=== PATIENT | female | born 1950 | race Caucasian/White ===

== ENCOUNTER 2016-03-23 11:02 | Emergency (ER) | payer MEDICARE, OTHER ==
[~2016-03-23 11:02] MED LIST: HYDR12.56 PO; PHEN100 PO
[2016-03-23 11:04] VITALS: BP 163/87; PULSE 95; RESP 18; TEMP 97.9; O2SAT 99
--- NOTE | 2016-03-23 13:01 | PD ---
HPI Chief Complaint: Wound/Suture/Staple Re-Check Time Seen by Provider: 12:30 Travel History International Travel<30 days: No Contact w/Intl Traveler<30days: No Traveled to known affect area: No History of Present Illness HPI Patient is a 65-year-old female who presented to the emergency department for evaluation and removal of stitches. Patient states she fell and had to stitches placed on March 08. She denies any other complaints at this time. [facility] Past Medical History Arthritis: Yes (arms and legs are bad) Asthma: No Anxiety: No Depression: No Heart Rhythm Problems: No Cancer: No Cardiovascular Problems: No High Cholesterol: No Chest Pain: No Congestive Heart Failure: No COPD: No Cerebrovascular Accident: No Diabetes: No Diminished Hearing: No Endocrine: No GERD: Yes Genitourinary: No Headaches: Yes Hiatal Hernia: No Immune Disorder: No Musculoskeletal: Yes Neurologic: Yes (RECENT HEAD INJURY) Reproductive: No Respiratory: No Immunizations Current: No Migraines: No Seizures: Yes Thyroid Disease: No Ulcer: No Menopausal: Yes Past Surgical History AICD: No Arteriovenous Shunt: No Insulin Pump: No Joint Replacement: No Pacemaker: No Social History Alcohol Use: Yes (VODKA) Tobacco Use: No Substance Use: No Allergies-Medications (Allergen,Severity, Reaction): Coded Allergies: No Known Allergies (Unverified , 12/04/14) Reported Meds & Prescriptions Reported Meds & Active Scripts Active Dilantin 100 Mg Kapseals (Phenytoin Sodium) 100 Mg Caper 300 Mg PO DAILY Reported Hctz (Hydrochlorothiazide) 12.5 Mg Cap 12.5 Mg PO DAILY Dilantin 100 Mg Kapseals (Phenytoin Sodium) 100 Mg Caper 300 Mg PO DAILY Review of Systems Except as stated in HPI: all other systems reviewed are Neg Physical Exam Narrative GENERAL: Well-nourished, well-developed patient. SKIN: Warm and dry. HEAD: Normocephalic. 2 intact sutures to the anterior scalp, no drainage, redness or exudates noted. EYES: No scleral icterus. No injection or drainage. NECK: Supple, trachea midline. No JVD or lymphadenopathy. CARDIOVASCULAR: Regular rate and rhythm without murmurs, gallops, or rubs. RESPIRATORY: Breath sounds equal bilaterally. No accessory muscle use. GASTROINTESTINAL: Abdomen soft, non-tender, nondistended. MUSCULOSKELETAL: No cyanosis, or edema. BACK: Nontender without obvious deformity. No CVA tenderness. Data Data Last Documented VS Vital Signs Date Time Temp Pulse Resp B/P Pulse Ox O2 Delivery O2 Flow Rate FiO2 03/23/16 11:04 97.9 95 18 163/87 99 Room Air MDM Medical Decision Making Medical Screen Exam Complete: Yes Emergency Medical Condition: Yes Interpretation(s) Vital Signs Date Time Temp Pulse Resp B/P Pulse Ox O2 Delivery O2 Flow Rate FiO2 03/23/16 11:04 97.9 95 18 163/87 99 Room Air Differential Diagnosis Cellulitis versus infected wound versus normal wound healing versus other Narrative Course Patient is a 65-year-old female who presented to emergency department to have her stitches removed. Stitches were placed most 2 weeks ago. She has no new complaints today. There are 2 intact sutures noted to the scalp, these were removed without difficulty. Patient was advised that she can wash her hair as she normally would. She was encouraged to follow-up with her primary doctor or return to emergency department for any new or worsening symptoms. Patient verbalized understanding of these instructions. Patient is stable for discharge. Diagnosis Primary Impression: Encounter for removal of sutures Referrals: Primary Care Physician Patient Instructions: General Instructions Additional Instructions: Follow-up with your primary doctor Return to emergency department for any new or worsening symptoms Med/Other Pt SpecificInfo: No Change to Meds Disposition: 01 DISCHARGE HOME Condition: Stable Celia Saavedra Mar 23, 2016 13:01
== END 2016-03-23 13:24 | disposition home or self-care (01) ==
LOC: NEPB 11:02
DX: S01.01XD Laceration without foreign body of scalp, subsequent encounter (principal); W19.XXXD Unspecified fall, subsequent encounter; Z48.02 Encounter for removal of sutures
CPT/HCPCS: 99281

== ENCOUNTER 2016-05-01 15:27 | Observation (INO) | payer MEDICARE, OTHER ==
[~2016-05-01] VITALS: Ht 160 cm; Wt 50.0 kg
[2016-05-01] MEDS ORDERED: SODIUM CHLOR 0.9% 1000 ML INJ 1,000 ML IV ONE (15:35)
[2016-05-01 15:40] VITALS: BP 155/97; PULSE 118; RESP 16; TEMP 99.7; O2SAT 96
[2016-05-01 15:44] VITALS: BP 155/97; PULSE 114; RESP 14; RESP 16; O2SAT 97
--- NOTE | 2016-05-01 15:44 | PD ---
HPI Chief Complaint: seizure Time Seen by Provider: 15:35 Travel History International Travel<30 days: No Contact w/Intl Traveler<30days: No Traveled to known affect area: No History of Present Illness HPI The patient is a 66-year-old female who presents emergency department from home after a seizure. The patient has a history of traumatic brain injury with subsequent seizures and currently takes Dilantin 100 mg 3 times a day coronary EMS. The patient apparently had 2 seizures earlier today was found on the floor, between furniture earlier today and then had another seizure at home. EMS states when they arrived the patient was postictal, has been slightly more responsive, but has not been talking since EMS arrived. EMS states the patient's blood glucose was approximately 180. The patient's vitals were unremarkable except for mild tachycardiac heart EMS. Upon arrival the patient is postictal and does not follow commands or answer questions. PFSH Past Medical History Arthritis: Yes (arms and legs are bad) Asthma: No Anxiety: No Depression: No Heart Rhythm Problems: No Cancer: No Cardiovascular Problems: No High Cholesterol: No Chest Pain: No Congestive Heart Failure: No COPD: No Cerebrovascular Accident: No Diabetes: No Diminished Hearing: No Endocrine: No GERD: Yes Genitourinary: No Headaches: Yes Hiatal Hernia: No Immune Disorder: No Musculoskeletal: Yes Neurologic: Yes (RECENT HEAD INJURY) Reproductive: No Respiratory: No Immunizations Current: No Migraines: No Seizures: Yes Thyroid Disease: No Ulcer: No Menopausal: Yes Past Surgical History AICD: No Arteriovenous Shunt: No Insulin Pump: No Joint Replacement: No Pacemaker: No Social History Alcohol Use: Yes (VODKA) Tobacco Use: No Substance Use: No Allergies-Medications (Allergen,Severity, Reaction): Coded Allergies: No Known Allergies (Unverified , 05/01/16) Reported Meds & Prescriptions Reported Meds & Active Scripts Active Reported Aspirin 81 Mg Chew 81 Mg CHEW DAILY Dilantin (Phenytoin Extended) 100 Mg Cap 100 Mg PO TID Review of Systems ROS Limitations: Clinical Condition, Other: (postictal) Physical Exam Exam Limitations: Clinical Condition Narrative GENERAL: Awake, apparently postictal 66-year-old female who will open her eyes, but is nonverbal. SKIN: Superficial abrasion to the right forearm. Laceration noted behind the left ear that measures 3 cm within the crease between the ear and head. HEAD: 3 cm laceration between the ear and head. EYES: Pupils equal and round. 3 mm bilateral and reactive. EOMs are intact. ENT: No nasal bleeding or discharge. Mucous membranes pink and moist. No visible tongue lacerations. NECK: Trachea midline. No JVD. CARDIOVASCULAR: Regular, tachycardic with a heart rate of 115. RESPIRATORY: No accessory muscle use. Clear to auscultation. Breath sounds equal bilaterally. GASTROINTESTINAL: Abdomen soft, non-tender, nondistended. No rebound tenderness. MUSCULOSKELETAL: Superficial abrasion to the right forearm. No obvious deformities to the upper or lower extremities. Passive full range of motion of the upper and lower extremity's. NEUROLOGICAL: Awake, eyes open, no obvious focal deficits. Patient moves all 4 extremities, but is slow to respond and is nonverbal initially. Appears postictal. Back: No obvious deformity of thoracic or lumbar vertebrae upon inspection and palpation. PSYCHIATRIC: Unable to assess. Data Data Last Documented VS Vital Signs Date Time Temp Pulse Resp B/P Pulse Ox O2 Delivery O2 Flow Rate FiO2 05/01/16 15:44 115 16 96 Room Air 05/01/16 15:44 155/97 05/01/16 15:40 99.7 Orders Complete Blood Count With Diff (05/01/16 15:35) Alcohol (Ethanol) (05/01/16 15:35) Phenytoin (Dilantin) (05/01/16 15:35) Electrocardiogram (05/01/16 ) Ct Brain W/O Iv Contrast(Rout) (05/01/16 ) Blood Glucose (05/01/16 15:35) Ecg Monitoring (05/01/16 15:35) Iv Access Insert/Monitor (05/01/16 15:35) Oximetry (05/01/16 15:35) Comprehensive Metabolic Panel (05/01/16 15:35) Sodium Chlor 0.9% 1000 Ml Inj (Ns 1000 M (05/01/16 15:35) Sodium Chloride 0.9% Flush (Ns Flush) (05/01/16 15:45) Lactic Acid (05/01/16 15:35) Ct Cerv Spine W/O Contrast (05/01/16 ) Ondansetron Inj (Zofran Inj) (05/01/16 16:45) Phenytoin Inj (Dilantin Inj) (05/01/16 16:45) Admit Order (Ed Use Only) (05/01/16 17:32) Labs Laboratory Tests Test 05/01/16 15:55 White Blood Count 11.0 TH/MM3 Red Blood Count 3.75 MIL/MM3 Hemoglobin 12.8 GM/DL Hematocrit 36.4 % Mean Corpuscular Volume 97.1 FL Mean Corpuscular Hemoglobin 34.0 PG Mean Corpuscular Hemoglobin 35.1 % Concent Red Cell Distribution Width 14.5 % Platelet Count 209 TH/MM3 Mean Platelet Volume 8.6 FL Neutrophils (%) (Auto) 87.8 % Lymphocytes (%) (Auto) 7.1 % Monocytes (%) (Auto) 4.8 % Eosinophils (%) (Auto) 0.1 % Basophils (%) (Auto) 0.2 % Neutrophils # (Auto) 9.6 TH/MM3 Lymphocytes # (Auto) 0.8 TH/MM3 Monocytes # (Auto) 0.5 TH/MM3 Eosinophils # (Auto) 0.0 TH/MM3 Basophils # (Auto) 0.0 TH/MM3 CBC Comment DIFF FINAL Differential Comment Sodium Level 139 MEQ/L Potassium Level 4.3 MEQ/L Chloride Level 102 MEQ/L Carbon Dioxide Level 26.3 MEQ/L Anion Gap 11 MEQ/L Blood Urea Nitrogen 10 MG/DL Creatinine 0.89 MG/DL Estimat Glomerular Filtration 64 ML/MIN Rate Random Glucose 177 MG/DL Lactic Acid Level 3.3 mmol/L Calcium Level 8.5 MG/DL Total Bilirubin 0.5 MG/DL Aspartate Amino Transf 35 U/L (AST/SGOT) Alanine Aminotransferase 19 U/L (ALT/SGPT) Alkaline Phosphatase 153 U/L Total Protein 6.4 GM/DL Albumin 3.2 GM/DL Phenytoin (Dilantin) Level 9.4 MCG/ML Ethyl Alcohol Level LESS THAN 3 MG/DL MDM Medical Decision Making Medical Screen Exam Complete: Yes Emergency Medical Condition: Yes Medical Record Reviewed: Yes Interpretation(s) Laboratory Tests Test 05/01/16 15:55 White Blood Count 11.0 TH/MM3 Red Blood Count 3.75 MIL/MM3 Hemoglobin 12.8 GM/DL Hematocrit 36.4 % Mean Corpuscular Volume 97.1 FL Mean Corpuscular Hemoglobin 34.0 PG Mean Corpuscular Hemoglobin 35.1 % Concent Red Cell Distribution Width 14.5 % Platelet Count 209 TH/MM3 Mean Platelet Volume 8.6 FL Neutrophils (%) (Auto) 87.8 % Lymphocytes (%) (Auto) 7.1 % Monocytes (%) (Auto) 4.8 % Eosinophils (%) (Auto) 0.1 % Basophils (%) (Auto) 0.2 % Neutrophils # (Auto) 9.6 TH/MM3 Lymphocytes # (Auto) 0.8 TH/MM3 Monocytes # (Auto) 0.5 TH/MM3 Eosinophils # (Auto) 0.0 TH/MM3 Basophils # (Auto) 0.0 TH/MM3 CBC Comment DIFF FINAL Differential Comment Sodium Level 139 MEQ/L Potassium Level 4.3 MEQ/L Chloride Level 102 MEQ/L Carbon Dioxide Level 26.3 MEQ/L Anion Gap 11 MEQ/L Blood Urea Nitrogen 10 MG/DL Creatinine 0.89 MG/DL Estimat Glomerular Filtration 64 ML/MIN Rate Random Glucose 177 MG/DL Lactic Acid Level 3.3 mmol/L Calcium Level 8.5 MG/DL Total Bilirubin 0.5 MG/DL Aspartate Amino Transf 35 U/L (AST/SGOT) Alanine Aminotransferase 19 U/L (ALT/SGPT) Alkaline Phosphatase 153 U/L Total Protein 6.4 GM/DL Albumin 3.2 GM/DL Phenytoin (Dilantin) Level 9.4 MCG/ML Ethyl Alcohol Level LESS THAN 3 MG/DL CT the head reveals stable remote infarcts on the left. No acute findings compared with February 2016. 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 No acute findings compared with February 2016. Filipe Garcia MD Cervical Spine CT 05/01/16 0000 Signed Impressions: Service Date/Time: Sunday, May 01, 2016 16:51 - CONCLUSION: 1. Moderate degenerative change, stable since February 2016. No acute fracture. Goiter. Filipe Garcia MD Differential Diagnosis Differential diagnosis includes seizure, breakthrough seizure, subtherapeutic Dilantin level, supratherapeutic Dilantin level, hyponatremia, intracranial hemorrhage, laceration, cervical injury. Narrative Course IV was established, labs are drawn and sent, and the patient was placed on cardiac telemetry monitoring and continuous pulse oximetry monitoring. CT of the brain and cervical spine were ordered. Patient was administered 1 L of IV fluids. The patient was found to have what appeared to be bedbugs, therefore, the patient had her clothing removed, new bed sheets applied, and a hairnet placed. CT was notified that the patient appears to have bedbugs, they will try to make exceptions and follow-up protocol in order to have the CT performed. The patient did have 1 episode of vomiting, therefore, was administered Zofran 4 mg intravenously. The patient was administered Dilantin 500 mg intravenously. The patient has had 2 seizures today, has not appeared to return to baseline, still is postictal, was able to tell me her name, but not where she was, current year, current month, or who she lives with. Patient appears to have status epilepticus that she has not returned to baseline. Therefore, the patient will be admitted. The patient's laceration was repaired by the physician exceptional children teacher assistant, Tino Hurst, please refer to the procedure note. The patient's primary physician is Dr. Dick Sylvester, therefore, [facility] were paged for admission. The patient was reevaluated after CT of 5:20 PM. The patient was ambulatory, was able to tell me she was a hospital and her name, but cannot tell me the name of her or the current year. The patient states it was 1971. The patient is still somewhat confused, does appear to be slightly improving. However, patient is not returned to baseline and it has been longer than one hour. The was contacted, he told nursing staff that the patient is normally alert and oriented 3 and normally knows the year, patient has not returned to baseline. Therefore, patient will be admitted. Physician Communication Physician Communication I discussed the patient with Dr. Walls who agrees with 23 hour observation. Diagnosis Primary Impression: Status epilepticus Additional Impressions: Seizure disorder Laceration of head Qualified Code: S01.91XA - Laceration of head without foreign body, unspecified part of head, initial encounter Admitting Information Admitting Physician Requests: Observation Condition: Stable Nav Marinelli MD May 01, 2016 15:44
[2016-05-01] MEDS ORDERED: SODIUM CHLORIDE 0.9% FLUSH 5 ML FLUSH IVF PRN (15:45)
[2016-05-01 16:19] LABS: AUTOMATED NEUTROPHIL # 9.6 TH/MM3 (1.8-7.7); BASOPHIL % 0.2 % (0.0-2.0); EOSINOPHIL % 0.1 % (0.0-4.0); HEMATOCRIT 36.4 % (35.0-46.0); HEMO FLAGS DIFF FINAL; LYMPH % 7.1 % (9.0-44.0); LYMPHOCYTE # 0.8 TH/MM3 (1.0-4.8); MEAN CELL VOLUME 97.1 FL (80.0-100.0); MEAN CORPUSCULAR HGB CONC 35.1 % (32.0-36.0); MONO % 4.8 % (0.0-8.0); NEUT % 87.8 % (16.0-70.0); PLATELET COUNT 209 TH/MM3 (150-450); RED BLOOD COUNT 3.75 MIL/MM3 (4.00-5.30); RED CELL DISTRIBUTION WIDTH 14.5 % (11.6-17.2)
[2016-05-01 16:35] LABS: ALKALINE PHOSPHATASE 153 U/L (45-117); ALT (GPT) 19 U/L (10-53); ANION GAP 11 MEQ/L (5-15); AST (GOT) 35 U/L (15-37); BICARBONATE 26.3 MEQ/L (21.0-32.0); BLOOD UREA NITROGEN 10 MG/DL (7-18); CHLORIDE 102 MEQ/L (98-107); GLOMERULAR FILTRATION RATE 64 ML/MIN (>89); SODIUM (NA) 139 MEQ/L (136-145); TOTAL BILIRUBIN ADULT 0.5 MG/DL (0.2-1.0)
[2016-05-01 16:36] LABS: POTASSIUM 4.3 MEQ/L (3.5-5.1)
[2016-05-01] MEDS ORDERED: ONDANSETRON HCL 4 MG/2 ML VIAL IV PUSH ONE (16:45)
[2016-05-01] MEDS ORDERED: PHENYTOIN INJ 500 MG in SODIUM CHLORIDE 0.9% INJ 100 ML IV ONE (16:45)
--- NOTE | 2016-05-01 17:25 | RADRPT ---
EXAM DATE/TIME: 05/01/2016 16:51 [facility] COMPARISON: CT BRAIN W/O CONTRAST, March 08, 2016, 17:42. INDICATIONS : Trauma; seizure. RADIATION DOSE: 51.46 CTDIvol (mGy) MEDICAL HISTORY : Seizures. intracranial bleed. SURGICAL HISTORY : None. ENCOUNTER: Initial ACUITY: 1 day PAIN SCALE: Non-responsive LOCATION: cranial TECHNIQUE: Multiple contiguous axial images were obtained of the head. Using automated exposure control and adj ustment of the mA and/or kV according to patient size, radiation dose was kept as low as reasonably a chievable to obtain optimal diagnostic quality images. FINDINGS: Remote infarcts noted left frontal lobe and left parietal lobe similar to February 2016. White matter ischemic changes noted. Hemorrhage, mass effect or shift. No hydrocephalus. No acute bony abnormalit ies. 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 No acute findings compared with February 2016. Filipe Garcia MD on May 01, 2016 at 17:22 Board Certified Radiologist. This report was verified electronically.
[2016-05-01] MEDS ORDERED: DILA100C PO (17:37)
[2016-05-01] MEDS ORDERED: ASPI81CH CHEW (17:37)
--- NOTE | 2016-05-01 17:38 | RADRPT ---
EXAM DATE/TIME: 05/01/2016 16:51 [facility] COMPARISON: CT CERVICAL SPINE W/O CONTRAST, March 08, 2016, 17:43. INDICATIONS : Trauma; seizure. RADIATION DOSE: 42.27 CTDIvol (mGy) MEDICAL HISTORY : Seizures. intracrainial bleed. SURGICAL HISTORY : None. ENCOUNTER: Initial ACUITY: 1 day PAIN SCALE: Non-responsive LOCATION: Bilateral neck TECHNIQUE: Volumetric scanning of the cervical spine was performed. Multiplanar reconstructions in the sagittal, coronal and oblique axial planes were performed. Using automated exposure control and adjustment o f the mA and/or kV according to patient size, radiation dose was kept as low as reasonably achievable to obtain optimal diagnostic quality images. FINDINGS: Comparison is February 2016. Examination is stable. There is reversal of normal cervical lordosis. No acute fracture or significant subluxation. Mild AP canal stenosis at C5-6-7. Again seen is stable left apical scarring and goiter. CONCLUSION: 1. Moderate degenerative change, stable since February 2016. No acute fracture. Goiter. Filipe Garcia MD on May 01, 2016 at 17:32 Board Certified Radiologist. This report was verified electronically.
--- NOTE | 2016-05-01 17:45 | PD ---
Physical Exam Date Seen by Provider: May 01, 2016 Time Seen by Provider: 17:43 Narrative 66-year-old female that presents to the ED for evaluation of laceration to the left ear. I was asked by my attending to repair laceration. Please refer to his note. Data Data Last Documented VS Vital Signs Date Time Temp Pulse Resp B/P Pulse Ox O2 Delivery O2 Flow Rate FiO2 05/01/16 15:44 115 16 96 Room Air 05/01/16 15:44 155/97 05/01/16 15:40 99.7 Orders Complete Blood Count With Diff (05/01/16 15:35) Alcohol (Ethanol) (05/01/16 15:35) Phenytoin (Dilantin) (05/01/16 15:35) Electrocardiogram (05/01/16 ) Ct Brain W/O Iv Contrast(Rout) (05/01/16 ) Blood Glucose (05/01/16 15:35) Ecg Monitoring (05/01/16 15:35) Iv Access Insert/Monitor (05/01/16 15:35) Oximetry (05/01/16 15:35) Comprehensive Metabolic Panel (05/01/16 15:35) Sodium Chlor 0.9% 1000 Ml Inj (Ns 1000 M (05/01/16 15:35) Sodium Chloride 0.9% Flush (Ns Flush) (05/01/16 15:45) Lactic Acid (05/01/16 15:35) Ct Cerv Spine W/O Contrast (05/01/16 ) Ondansetron Inj (Zofran Inj) (05/01/16 16:45) Phenytoin Inj (Dilantin Inj) (05/01/16 16:45) Admit Order (Ed Use Only) (05/01/16 17:32) Labs Laboratory Tests Test 05/01/16 15:55 White Blood Count 11.0 TH/MM3 Red Blood Count 3.75 MIL/MM3 Hemoglobin 12.8 GM/DL Hematocrit 36.4 % Mean Corpuscular Volume 97.1 FL Mean Corpuscular Hemoglobin 34.0 PG Mean Corpuscular Hemoglobin 35.1 % Concent Red Cell Distribution Width 14.5 % Platelet Count 209 TH/MM3 Mean Platelet Volume 8.6 FL Neutrophils (%) (Auto) 87.8 % Lymphocytes (%) (Auto) 7.1 % Monocytes (%) (Auto) 4.8 % Eosinophils (%) (Auto) 0.1 % Basophils (%) (Auto) 0.2 % Neutrophils # (Auto) 9.6 TH/MM3 Lymphocytes # (Auto) 0.8 TH/MM3 Monocytes # (Auto) 0.5 TH/MM3 Eosinophils # (Auto) 0.0 TH/MM3 Basophils # (Auto) 0.0 TH/MM3 CBC Comment DIFF FINAL Differential Comment Sodium Level 139 MEQ/L Potassium Level 4.3 MEQ/L Chloride Level 102 MEQ/L Carbon Dioxide Level 26.3 MEQ/L Anion Gap 11 MEQ/L Blood Urea Nitrogen 10 MG/DL Creatinine 0.89 MG/DL Estimat Glomerular Filtration 64 ML/MIN Rate Random Glucose 177 MG/DL Lactic Acid Level 3.3 mmol/L Calcium Level 8.5 MG/DL Total Bilirubin 0.5 MG/DL Aspartate Amino Transf 35 U/L (AST/SGOT) Alanine Aminotransferase 19 U/L (ALT/SGPT) Alkaline Phosphatase 153 U/L Total Protein 6.4 GM/DL Albumin 3.2 GM/DL Phenytoin (Dilantin) Level 9.4 MCG/ML Ethyl Alcohol Level LESS THAN 3 MG/DL [facility] Medical Record Reviewed: Yes Supervised Visit with MATTEO: No Procedures Procedure Narrative LACERATION LOCATION: left ear LENGTH: 2 cm NUMBER OF STITCHES/GUSTABO: dermabond REPAIR: The area of the laceration was prepped with Betadine and sterilely draped. The wound was copiously irrigated and explored without evidence of foreign body, tendon injury or neurovascular injury. The wound was closed using dermabond. This was a 1 layer repair. A sterile dressing was applied. The patient was advised to keep the dressing clean and dry. Patient tolerated the procedure well. Some hairs did unfortunately glue to the dermabond but overall wound closed well. Dressing applied by nurse. Condition: Stable Tino Hurst May 01, 2016 17:45
[2016-05-01 17:47] VITALS: BP 140/94; PULSE 108; RESP 16; O2SAT 97
[2016-05-01] MEDS ORDERED: SODIUM CHLORIDE 0.9% FLUSH 5 ML FLUSH FLUSH PRN (18:00)
[2016-05-01] MEDS ORDERED: ACETAMINOPHEN 325 MG TAB PO PRN (18:00)
[2016-05-01] MEDS ORDERED: NALOXONE HCL 0.4 MG/ML AMP IV PRN (18:00)
[2016-05-01] MEDS ORDERED: ONDANSETRON HCL 4 MG/2 ML VIAL IVP PRN (18:00)
--- NOTE | 2016-05-01 18:04 | HHI.HP ---
[facility] Yadiel Sylvester MD Admission Diagnosis status epilepticus, lactic acidosis, subtherapeutic Dilantin level Diagnoses: Chief Complaint: seizures (Nikkie Bailey) Travel History International Travel<30 Days: No Contact w/Intl Traveler <30 Da: No Traveled to Known Affected Are: No (Nikkie Bailey) History of Present Illness The patient is a 66-year-old female with significant past medical history of seizure disorder secondary to traumatic brain injury, previous falls secondary to seizures that resulted in hemorrhagic bleeds. Patient was brought into the emergency room after she had seizures at home. Per review of emergency room records, patient had 2 seizures earlier in the day and was found on the floor between furniture. When EMS arrived, the patient was postictal. Blood glucose was 180, she was noted tachycardic. Patient found her foaming at the mouth and attempted to give CPR. Information is obtained from the emergency room record, patient remains lethargic but is now waking up but unable to provide any details. There is no family at bedside. In the emergency room, patient was evaluated. CT of the brain and cervical spine were ordered, no acute findings. 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 No acute findings compared with February 2016. Filipe Garcia MD Cervical Spine CT 05/01/16 Signed Impressions: Service Date/Time: Sunday, May 01, 2016 16:51 - CONCLUSION: 1. Moderate degenerative change, stable since February 2016. No acute fracture. Goiter. Filipe Garcia MD Patient takes Dilantin 100 mg 3 times a day. Dilantin level was 9.4. It isn't clear whether patient is compliant with medications. Laboratory workup was completed, lactic acid was 3.3. Blood glucose was 177. General low-grade fever , 99.7. Blood pressure was 155 or 97, heart rate 118, respiratory rate 16, sats 96% on room air. He did have one episode of vomiting in the emergency room , was given antiemetics. She was given Dilantin 500 mg IV. It was noted she had a laceration to the left ear which was repaired by the PA. Patient also has bruising and abrasions to both arms. Additionally she was noted with small insects crawling on her hair, 2 different types. Possibly these are bedbugs. Patient is evaluated in emergency room, patient awakes to voice, now she is in the hospital, able to provide name. Unable to provide any details, when asked about compliance with medications she is not answering. She admits to some alcohol use, unable to quantify how much. Denies any illegal drug use. Per 's report to nursing staff, patient is usually alert and oriented 3. Patient is admitted for further evaluation and treatment. (Nikkie Bailey) Review of Systems ROS Limitations: Clinical Condition, Altered Mental Status, Poor Historian ( Nikkie Bailey) Past Family Social History Past Medical History 1. Intraparenchymal hemorrhage in 2012 and 2013 after falling sec. to seizures 2. History of seizures. 3. Hypertension. Past Surgical History Right eye surgery, implanted lens, cataract Reported Medications Reported Meds & Active Scripts Active Reported Aspirin 81 Mg Chew 81 Mg CHEW DAILY Dilantin (Phenytoin Extended) 100 Mg Cap 100 Mg PO TID (Nikkie Bailey) Allergies: Coded Allergies: No Known Allergies (Unverified , 05/01/16) Active Ordered Medications Inpatient Medications Acetaminophen (Tylenol) 650 mg Q4H PRN PO TEMP > 100.4; Start 05/01/16 at 18:00 ; Status UNV IV Flush (NS Flush) 2 ml BID FLUSH ; Start 05/01/16 at 21:00; Status UNV Naloxone HCl (Narcan Inj) 0.4 mg UNSCH PRN IV SEE LABEL COMMENTS; Start at 18:00; Status UNV Ondansetron HCl (Zofran Inj) 4 mg Q6H PRN IVP NAUSEA OR VOMITING; Start at 18:00; Status UNV Ondansetron HCl 4 mg 4 mg ONCE ONCE IV PUSH Last administered on 05/01/16 17: 29; Start 05/01/16 at 16:45; Stop 05/01/16 at 16:46; Status DC Phenytoin Sodium 500 mg/Sodium Chloride 110 ml @ 240 mls/hr ONCE ONCE IV Last administered on 05/01/16 17:48; Start 05/01/16 at 16:45; Stop 05/01/16 at 17:12; Status DC Sodium Chloride (NS 1000 ml Inj) 1,000 ml @ 100 mls/hr Q10H IV ; Start at 18:00; Status UNV Family History Unable to obtain Social History Patient is , lives with . She does smoke, unclear how much. Does drink alcohol, unclear on the amount. Denies illegal drug use. (Nikkie Bailey) Physical Exam Vital Signs Vital Signs Date Time Temp Pulse Resp B/P Pulse Ox O2 Delivery O2 Flow Rate FiO2 05/01/16 17:47 108 16 140/94 97 Room Air 05/01/16 15:44 115 16 96 Room Air 05/01/16 15:44 16 97 Room Air 05/01/16 15:44 114 14 155/97 97 Room Air 05/01/16 15:40 99.7 118 16 155/97 96 Physical Exam GENERAL: This is a well-nourished, female. Disheveled. Postictal SKIN: Abrasions and bruises to upper extremities. Laceration to the left ear that has been sutured. There is dried blood. No insects noted crawling at this time. HEAD: Atraumatic. Normocephalic. No temporal or scalp tenderness. EYES: Right pupil irregular, secondary to surgery. Left pupil equal and reactive. No scleral icterus. No injection or drainage. ENT: Nose without bleeding, purulent drainage or septal hematoma. Throat without erythema, tonsillar hypertrophy or exudate. Uvula midline. Airway patent. NECK: Trachea midline. No JVD or lymphadenopathy. Supple, nontender, no meningeal signs. CARDIOVASCULAR: Regular rate and rhythm without murmurs, gallops, or rubs. RESPIRATORY: Clear to auscultation. Breath sounds equal bilaterally. No wheezes , rales, or rhonchi. GASTROINTESTINAL: Abdomen soft, non-tender, nondistended. No hepato-splenomegaly , or palpable masses. No guarding. MUSCULOSKELETAL: Extremities without clubbing, cyanosis, or edema. No joint tenderness, effusion, or edema noted. No calf tenderness. Negative Homans sign bilaterally. NEUROLOGICAL: Postictal, awakes to voice, oriented to self and place. Not following commands consistently. No focal deficits. No seizures noted. Laboratory Laboratory Tests Test 05/01/16 15:55 White Blood Count 11.0 Red Blood Count 3.75 Hemoglobin 12.8 Hematocrit 36.4 Mean Corpuscular Volume 97.1 Mean Corpuscular Hemoglobin 34.0 Mean Corpuscular Hemoglobin 35.1 Concent Red Cell Distribution Width 14.5 Platelet Count 209 Mean Platelet Volume 8.6 Neutrophils (%) (Auto) 87.8 Lymphocytes (%) (Auto) 7.1 Monocytes (%) (Auto) 4.8 Eosinophils (%) (Auto) 0.1 Basophils (%) (Auto) 0.2 Neutrophils # (Auto) 9.6 Lymphocytes # (Auto) 0.8 Monocytes # (Auto) 0.5 Eosinophils # (Auto) 0.0 Basophils # (Auto) 0.0 CBC Comment DIFF FINAL Differential Comment Sodium Level 139 Potassium Level 4.3 Chloride Level 102 Carbon Dioxide Level 26.3 Anion Gap 11 Blood Urea Nitrogen 10 Creatinine 0.89 Estimat Glomerular Filtration 64 Rate Random Glucose 177 Lactic Acid Level 3.3 Calcium Level 8.5 Total Bilirubin 0.5 Aspartate Amino Transf 35 (AST/SGOT) Alanine Aminotransferase 19 (ALT/SGPT) Alkaline Phosphatase 153 Total Protein 6.4 Albumin 3.2 Phenytoin (Dilantin) Level 9.4 Ethyl Alcohol Level LESS THAN 3 (Nikkie Bailey) Result Diagram: 05/01/16 1555 05/01/16 1555 Imaging Last Impressions Head CT 05/01/16 0000 Signed Impressions: Service Date/Time: Sunday, May 01, 2016 16:51 - CONCLUSION: 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 No acute findings compared with February 2016. Filipe Garcia MD Cervical Spine CT 05/01/16 0000 Signed Impressions: Service Date/Time: Sunday, May 01, 2016 16:51 - CONCLUSION: 1. Moderate degenerative change, stable since February 2016. No acute fracture. Goiter. Filipe Garcia MD (Nikkie Bailey) Assessment and Plan Problem List: (1) Status epilepticus (2) Seizure disorder (3) Laceration of head (4) Tobacco abuse (5) Subtherapeutic serum dilantin level (6) Cognitive impairment Assessment and Plan Admit to Dr. Walls 66-year-old female with history of traumatic brain injury and subsequent seizure disorder, presented to emergency room with status epilepticus. Noted with subtherapeutic Dilantin level. Status epilepticus, remains postictal -Continue with IV fluids Resume diet when patient is awake and able to pass bedside swallow eval Neurology consultation EEG Resume Dilantin 100 mg by mouth 3 times a day Repeat Dilantin level in the morning Bed rest for now Continuous cardiac telemetry Seizure precautions Neurology checks per protocol Left ear laceration Monitor, local wound care SCDs for DVT prophylaxis Home medications reviewed, initiated as indicated Plan of care has been discussed with the patient, attending and registered nurse. Further management of the patient will be dependent on the hospital course This patient was seen by myself and Dr. Walls, this H&P is written on his behalf (Nikkie Bailey) Assessment and Plan Pt seen and examined on day of admission with rn at bedside chart was reviewed meds and labs reviewed rad data reviewed notes reviewed plan of care dw eduardo dw rn (Ibeth Walls MD) Problem Qualifiers (1) Laceration of head: Qualified Code: S01.91XA - Laceration of head without foreign body, unspecified part of head, initial encounter Nikkie Bailey May 01, 2016 18:04 Ibeth Walls MD May 02, 2016 21:13
[2016-05-01] MEDS: SODIUM CHLOR 0.9% 1000 ML INJ 1,000 ML IV SCH (19:31)
[2016-05-01 20:29] VITALS: BP 127/68; PULSE 98; RESP 14; O2SAT 97
[2016-05-01] MEDS: SODIUM CHLORIDE 0.9% FLUSH 5 ML FLUSH FLUSH SCH (20:34)
[2016-05-01 21:00] VITALS: BP 121/76; PULSE 74; RESP 18; TEMP 97.4; O2SAT 98
[2016-05-01 23:42] VITALS: BP 124/74; PULSE 74; RESP 21; TEMP 98.4; O2SAT 98
[2016-05-02] VITALS: PULSE 99
[2016-05-02] MEDS ORDERED: PERMETHRIN 5% CREAM 60 GM TOPICAL ONE (00:15)
[2016-05-02 04:36] VITALS: BP 124/78; PULSE 87; RESP 18; TEMP 97.9; O2SAT 97
[2016-05-02] MEDS: SODIUM CHLOR 0.9% 1000 ML INJ 1,000 ML IV SCH ×2 (05:37→14:00)
[2016-05-02 06:09] LABS: AUTOMATED NEUTROPHIL # 3.3 TH/MM3 (1.8-7.7); BASOPHIL % 0.4 % (0.0-2.0); EOSINOPHIL % 0.8 % (0.0-4.0); HEMATOCRIT 32.8 % (35.0-46.0); HEMO FLAGS DIFF FINAL; LYMPH % 23.5 % (9.0-44.0); LYMPHOCYTE # 1.1 TH/MM3 (1.0-4.8); MEAN CELL VOLUME 96.6 FL (80.0-100.0); MEAN CORPUSCULAR HEMOGLOBIN 34.6 PG (27.0-34.0); MEAN CORPUSCULAR HGB CONC 35.8 % (32.0-36.0); MONO % 8.3 % (0.0-8.0); PLATELET COUNT 168 TH/MM3 (150-450); RED BLOOD COUNT 3.39 MIL/MM3 (4.00-5.30); RED CELL DISTRIBUTION WIDTH 14.6 % (11.6-17.2); WHITE BLOOD COUNT 4.9 TH/MM3 (4.0-11.0)
[2016-05-02 06:39] LABS: BICARBONATE 30.8 MEQ/L (21.0-32.0)
[2016-05-02 07:00] VITALS: PULSE 79
[2016-05-02 07:01] LABS: POTASSIUM 2.9 MEQ/L (3.5-5.1)
--- NOTE | 2016-05-02 08:01 | HHI.PR ---
Subjective Remarks Patient more awake today, now she is in the hospital, able to provide name, oriented to self and others. Indicates that she probably didn't take her Dilantin yesterday, possibly day before Complaining of generalized body aches Patient states she has bedbugs at home, lives in a rental facility in landlord will not pay for treatment. No chest pain No shortness of breath Has no other complaints Indicates that she used to drink heavily but not as much, now more a social drinker (Nikkie Bailey) Objective Objective Results - Vital Signs Date Time Temp Pulse Resp B/P Pulse Ox O2 Delivery O2 Flow Rate FiO2 05/02/16 04:36 97.9 87 18 124/78 97 05/02/16 00:00 99 05/01/16 23:42 98.4 74 21 124/74 98 05/01/16 21:00 97.4 74 18 121/76 98 05/01/16 20:29 98 14 127/68 97 Room Air 05/01/16 17:47 108 16 140/94 97 Room Air 05/01/16 15:44 115 16 96 Room Air 05/01/16 15:44 16 97 Room Air 05/01/16 15:44 114 14 155/97 97 Room Air 05/01/16 15:40 99.7 118 16 155/97 96 I/O 05/01/16 05/01/16 05/01/16 05/02/16 05/02/16 05/02/16 07:00 15:00 23:00 07:00 15:00 23:00 Intake Total 800 ml Balance 800 ml IV Total 800 ml # Voids 2 (Nikkie Bailey) Result Diagram: 05/02/16 0520 05/02/16 0520 Imaging Last Impressions Head CT 05/01/16 0000 Signed Impressions: Service Date/Time: Sunday, May 01, 2016 16:51 - CONCLUSION: 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 No acute findings compared with February 2016. Filipe Garcia MD Cervical Spine CT 05/01/16 0000 Signed Impressions: Service Date/Time: Sunday, May 01, 2016 16:51 - CONCLUSION: 1. Moderate degenerative change, stable since February 2016. No acute fracture. Goiter. Filipe Garcia MD Other Results Laboratory Tests Test 05/01/16 05/02/16 15:55 05:20 White Blood Count 11.0 4.9 Red Blood Count 3.75 3.39 Hemoglobin 12.8 11.7 Hematocrit 36.4 32.8 Mean Corpuscular Volume 97.1 96.6 Mean Corpuscular Hemoglobin 34.0 34.6 Mean Corpuscular Hemoglobin 35.1 35.8 Concent Red Cell Distribution Width 14.5 14.6 Platelet Count 209 168 Mean Platelet Volume 8.6 8.6 Neutrophils (%) (Auto) 87.8 67.0 Lymphocytes (%) (Auto) 7.1 23.5 Monocytes (%) (Auto) 4.8 8.3 Eosinophils (%) (Auto) 0.1 0.8 Basophils (%) (Auto) 0.2 0.4 Neutrophils # (Auto) 9.6 3.3 Lymphocytes # (Auto) 0.8 1.1 Monocytes # (Auto) 0.5 0.4 Eosinophils # (Auto) 0.0 0.0 Basophils # (Auto) 0.0 0.0 CBC Comment DIFF FINAL DIFF FINAL Differential Comment Sodium Level 139 143 Potassium Level 4.3 2.9 Chloride Level 102 104 Carbon Dioxide Level 26.3 30.8 Anion Gap 11 8 Blood Urea Nitrogen 10 5 Creatinine 0.89 0.68 Estimat Glomerular Filtration 64 87 Rate Random Glucose 177 80 Lactic Acid Level 3.3 Calcium Level 8.5 7.7 Total Bilirubin 0.5 Aspartate Amino Transf 35 (AST/SGOT) Alanine Aminotransferase 19 (ALT/SGPT) Alkaline Phosphatase 153 Total Protein 6.4 Albumin 3.2 Phenytoin (Dilantin) Level 9.4 15.2 Ethyl Alcohol Level LESS THAN 3 (Nikkie Bailey) ROS General: Other (poor historian, c/o general body aches from fall yesterday ) ( Nikkie Bailey) Physical Exam Physical Exam GENERAL: This is a well-nourished, female. Disheveled. Postictal SKIN: Abrasions and bruises to upper extremities. Laceration to the left ear that has been sutured. There is dried blood. No insects noted crawling at this time. HEAD: Atraumatic. Normocephalic. No temporal or scalp tenderness. EYES: Right pupil irregular, secondary to surgery. Left pupil equal and reactive. No scleral icterus. No injection or drainage. ENT: Nose without bleeding, purulent drainage or septal hematoma. Throat without erythema, tonsillar hypertrophy or exudate. Uvula midline. Airway patent. NECK: Trachea midline. No JVD or lymphadenopathy. Supple, nontender, no meningeal signs. CARDIOVASCULAR: Regular rate and rhythm without murmurs, gallops, or rubs. RESPIRATORY: Clear to auscultation. Breath sounds equal bilaterally. No wheezes , rales, or rhonchi. GASTROINTESTINAL: Abdomen soft, non-tender, nondistended. No hepato-splenomegaly , or palpable masses. No guarding. MUSCULOSKELETAL: Extremities without clubbing, cyanosis, or edema. No joint tenderness, effusion, or edema noted. No calf tenderness. Negative Homans sign bilaterally. NEUROLOGICAL: Awakes to voice, more alert, oriented 2. Following commands, speech clear. Able to provide some more information today as to what brought her in the hospital. (Nikkie Bailey) Urinary Catheter: No (Nikkie Bailey) Vascular Central Line Catheter: No (Nikkie Bailey) A/P Diagnosis: (1) Status epilepticus (2) Seizure disorder (3) Laceration of head (4) Tobacco abuse (5) Subtherapeutic serum dilantin level Assessment and Plan 66-year-old female with history of traumatic brain injury and subsequent seizure disorder, presented to emergency room with status epilepticus. Noted with subtherapeutic Dilantin level. Status epilepticus, secondary to poor compliance with taking medications. -Continue with IV fluids Neurology consultation pending EEG pending Continue Dilantin 100 mg by mouth 3 times a day Repeat Dilantin level 15.2 Out of bed with assistance Continuous cardiac telemetry Seizure precautions Neurology checks per protocol -Improve, more awake and oriented. 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 There is also issue with poor compliance with medication. Patient has history of previous TBI, likely has some cognitive deficit. We will wait for neurology and EEG. If patient remains stable, possible discharge later today. D/W RN D/W Dr. Walls D/W pt. This patient was seen by myself and Dr. Walls, this note is written on his behalf (Nikkie Bailey) Assessment and Plan evaluation was done as above chart was reviewed labs rad data and meds reviewed dw eduardo about plan of care (Ibeth Walls MD) Problem Qualifiers (1) Laceration of head: Qualified Code: S01.91XA - Laceration of head without foreign body, unspecified part of head, initial encounter Nikkie Bailey May 02, 2016 08:01 Ibeth Walls MD May 02, 2016 08:17
[2016-05-02] MEDS ORDERED: POTASSIUM CL 40 MEQ/30 ML LIQ UDC PO ONE (08:15)
--- NOTE | 2016-05-02 09:56 | HHI.FF ---
Face to Face Verification Diagnosis: (1) Seizure disorder (2) Cognitive impairment Home Health Nursing Order: Medical education Medication education-adverse effect [employer] Order: To Evaluate: Living conditions/environment (BED BUG INFESTATION), Support services Order: To Provide: Community services I have seen patient Elysia Alston on 05/02/16. My clinical findings support the need for the requested home health care services because: Limited ability to care for self Need for psychosocial assistance Impaired cognition/judgement I certify that my clinical findings support that this patient is homebound because: Impaired cognitive ability/safety Need for psychosocial assistance Nikkie Bailey May 02, 2016 09:56
[2016-05-02] MEDS: PHENYTOIN SODIUM 100 MG CAP PO SCH ×2 (10:13→13:35)
[2016-05-02] MEDS: SODIUM CHLORIDE 0.9% FLUSH 5 ML FLUSH FLUSH SCH (10:13)
--- NOTE | 2016-05-02 11:23 | EKG ---
Date Performed: 05/01/2016 Time Performed: 16:07:19 PTAGE: 66 years EKG: SINUS TACHYCARDIA POSSIBLE RIGHT VENTRICULAR HYPERTROPHY POSSIBLE INFERIOR MYOCARDIAL INFAR CTION Compared to previous tracing of 03/08/2016, right axis deviation is now present. ABNORMAL ECG PREVIOUS TRACING : 03/08/2016 17.37 DOCTOR: Alexei Lopez Interpretating Date/Time 05/02/2016 11:22:02
--- NOTE | 2016-05-02 11:54 | MB ---
cc: MANDA MARTINS M.D. DATE OF CONSULTATION: 05/02/2016 REASON FOR CONSULTATION The patient is a 66-year-old woman seen in neurological consultation in regards to seizures. HISTORY OF PRESENT ILLNESS Reportedly the patient had a 5-10 minute seizure at home and was brought by her . There is a history of traumatic brain injury in the past causing seizures. She reportedly takes Dilantin 100 mg three times a day and she came with a Dilantin level of 9.4. Repeat level today is 15.3. There were no additional seizures after coming to the hospital. She also takes baby aspirin. NEUROLOGICAL EXAMINATION On exam the patient is alert, pleasant and oriented. Mentation is adequate. Ocular movements and visual humphries full. She has good strength in all four limbs on the bedside exam. Reflexes are 1+ throughout. Plantar response is flexor. IMAGING The CT brain shows a remote left hemisphere infarct, no acute process. ASSESSMENT 1. Seizure recurrence. 2. Subtherapeutic Dilantin level. RECOMMENDATIONS She is anxious to go home. She appears stable neurologic-chin. She probably could be discharged home to be followed as an outpatient. Her Dilantin level improved after Dilantin 500 mg was given in the emergency room. I will be happy to follow her unless she has a neurologist already. Thank you for asking us to assist in her care. MD MIHIR Yeung/BT /11:15 AM /11:43 AM
[2016-05-02 13:43] VITALS: BP 150/80; PULSE 83; RESP 18; TEMP 98.5; O2SAT 95
--- NOTE | 2016-05-02 16:14 | HHI.DCPOC ---
Discharge Care Plan Diagnosis: (1) Status epilepticus Your Health Problems Are: Difficulty with ADL Goals to Promote Your Health * To prevent worsening of your condition and complications * To maintain your health at the optimal level Directions to Meet Your Goals Take your medications as prescribed Follow your dietary instruction Follow activity as directed Keep your appointments as scheduled Take your immunizations and boosters as scheduled If your symptoms worsen call your PCP, if no PCP go to Urgent Care Center or Emergency Room Smoking is Dangerous to Your Health. Avoid second hand smoke Call the 24-hour hour crisis hotline for domestic abuse at Nikkie Bailey May 02, 2016 16:14
[2016-05-03] MEDS ORDERED: PHENYTOIN INJ 100 MG/2 ML VIAL IVS SCH (01:00)
== END 2016-05-02 18:01 | disposition home or self-care (01) ==
LOC: NEPE 15:27 → NEDA 17:34 → NEPGCP 22:13
PROVIDERS: ADMIT Specialist; ATTEND Specialist
DX: G40.901 Epilepsy, unspecified, not intractable, with status epilepticus (principal); S01.312A Laceration without foreign body of left ear, initial encounter; I10 Essential (primary) hypertension; E87.2 Acidosis; E87.6 Hypokalemia; E04.9 Nontoxic goiter, unspecified; K21.9 Gastro-esophageal reflux disease without esophagitis; F17.200 Nicotine dependence, unspecified, uncomplicated; Z87.820 Personal history of traumatic brain injury; Z91.14 Patient's other noncompliance with medication regimen; Z91.81 History of falling
CPT/HCPCS: 12011; 70450; 72125; 80048; 80053; 80185; 80320; 83605; 85025; 93005; 96360; 99285; G0378; J1165; J2405; J7030